=== PATIENT | male | born 1990 | race Caucasian/White ===

== ENCOUNTER 2018-10-05 10:42 | Emergency (ER) | payer MEDICAID, OTHER ==
--- NOTE | 2018-10-05 11:20 | ED Physician Documentation ---
History of Present Illness - Stated complaint Stated Complaint: RT/LT FOOT PX - Chief complaint Chief Complaint: Ext Problem - Additonal information Additional information: This is a 28-year-old male who presents with bilateral foot and ankle pain after a wakeboarding accident. Patient was riding his friend's wakeboard when he caught his front edge falling forward and his legs were pulled out of the boots with force. He had immediate pain in his bilateral ankles, and his left foot. He has been able to bear weight on the right foot, but he cannot bear weight on the left. He is using crutches to get around. This occurred yesterday and the pain has not improved significantly today so he came into the emergency department. He denies tingling, numbness, weakness.He has a history of a fracture of his right foot in the past. Review of Systems Constitutional: denies: Fever Cardiac: denies: Chest pain / pressure Respiratory: denies: Dyspnea GI: denies: Abdominal Pain Skin: reports: Other (+ for bruising) Musculoskeletal: reports: Joint pain, Joint swelling Neurologic: denies: Generalized weakness PD PAST MEDICAL HISTORY - Past Medical History Cardiovascular: None Respiratory: None Endocrine/Autoimmune: None GI: None : None Psych: None Derm: None - Past Surgical History Ortho: Carpal Tunnel surgery - Present Medications Home Medications: Ambulatory Orders Medication Instructions Recorded Confirmed Oxycodone HCl/Acetaminophen 1 - 2 each PO Q6H PRN #14 tablet 10/05/18 [Percocet 5-325 mg Tablet] Polyethylene Glycol 3350 [Miralax] 17 gm PO DAILY PRN #1 bottle 10/05/18 - Allergies Allergies/Adverse Reactions: Allergies Allergy/AdvReac Type Severity Reaction Status Date / Time No Known Drug Allergies Allergy Verified 10/05/18 10:51 - Social History Does the pt smoke?: No Smoking Status: Never smoker PD ED PE NORMAL - Vitals Vital signs reviewed: Yes - General General: Alert and oriented X 3, No acute distress - HEENT HEENT: PERRL - Cardiac Cardiac: RRR - Respiratory Respiratory: No respiratory distress - Abdomen Abdomen: Normal bowel sounds, Soft, Non tender, Non distended - Derm Derm: Warm and dry - Extremities Extremities: Other (There is bruising over the lateral inferior right ankle inferior to the right malleolus, with tenderness in this region. No tibial/fibular tenderness. The left dorsal midfoot is very tender to palpation, with extensive bruising and swelling. Again there is no fibular or tibial tenderness. The toes on both feet are atraumatic and non-tender. 2+ post tibial pulses bilaterally, SILT over both extrmetries, patient is able to wiggle all toes.) - Neuro Neuro: Alert and oriented X 3 - Psych Psych: Normal mood, Normal affect Results - Vitals Vitals: Vital Signs - 24 hr 10/05/18 10/05/18 10:49 15:02 Temperature 36.8 C 36.3 C L Heart Rate 106 H 66 Respiratory 20 16 Rate Blood Pressure 152/98 H 135/84 H O2 Saturation 94 97 Oxygen O2 Source Room air - Rads (name of study) XR ankle bila Radiology: Prelim report reviewed (Likely calcaneal process fracture on right.) CT left ankle/foot Radiology: Prelim report reviewed (Mildly comminuted left anterior process calca ivonne fracture) Procedures - Splint (location) Lower extremity left Splint applied by: Tech Type of splint: Short leg, Other (Short leg posterior slab with sugar tong (AO splint)) Other: Patient tolerated well, Neurovascular intact, Crutches provided PD MEDICAL DECISION MAKING - ED course Complexity details: considered differential (Fracture, dislocation, contusion, neurovascular injury, sprain, ligamentous injury) ED course: Patient presents with left greater than right ankle pain after a wakeboarding accident. On exam his feet are neurovascularly intact. tylenol and ibuprofen given for pain. XRs obtained, the right ankle does not have signs of acute osseous abnormality and based on the location of his tenderness and the fact that he can bear weight, this is likely an ankle sprain. The left foot had a possible calcaneal fracture, CT was performed confirming an anterior process fracture of the left calcaneus. There is some mild comminution but it is not frankly displaced. I spoke with Dr. Bender of orthopedics who reviewed the images and agreed with the plan of non-weight bearing in a short leg AO splint. He recommended follow up with a metabolic specialist. I provided patient with the contact information for several foot specialists and discussed that he should obtain the next possible appointment. If he is unable to get in in a timely manner, he may follow up with our orthopedists, however he would be best served seeing a metabolic specialist for this fracture. I also emphasized he should be non- weight bearing on the left foot, and that if he has continued non-improving pain on the right he may need repeat films of the right. Patient verbalized understanding. I reviewed return precuations, prescribed percocet for breakthrough pain not controlled by tylenol/ibuprofen, and miralax if he takes the percocet. Patient was provided new crutches that fit him properly and was discharged home Departure - Departure Disposition: , Self Care Clinical Impression: Calcaneal fracture Qualifiers: Encounter type: initial encounter Calcaneus location: anterior process Fracture type: closed Fracture alignment: nondisplaced Laterality: left Qualified Code(s): S92.025A - Nondisplaced fracture of anterior process of left calcaneus, initial encounter for closed fracture Condition: Good Instructions: ED Fx Foot Follow-Up: BRANDI RAMOS MD [Physician No Access] - Belgica Flanagan DPM [Physician No Access] - Prescriptions: Oxycodone HCl/Acetaminophen [Percocet 5-325 mg Tablet] 1 - 2 each PO Q6H PRN #14 tablet PRN Reason: pain Polyethylene Glycol 3350 [Miralax] 17 gm PO DAILY PRN #1 bottle PRN Reason: Constipation Comments: You were seen today for foot pain. You have a fracture of the calcaneus on your left foot. Do not bear weight on this. You need to follow-up with a metabolic specialist, please call Dr. Silvestre or [facility] for the next possible appointment ideally within 1 week. Use crutches.We do not see signs of a fracture on the right side, but if you have increasing or not improving pain you may need a repeat x-ray in 1 week. Forms: Activity restrictions Discharge Date/Time: 10/05/18 15:03
[2018-10-05] MEDS ORDERED: IBUPROFEN 600 MG TABLET PO STA (11:45)
[2018-10-05] MEDS ORDERED: ACETAMINOPHEN 325 MG TABLET PO STA (11:45)
--- NOTE | 2018-10-05 12:33 | XRAY Report ---
Reason: Ankle and foot pain after wakeboarding accident Procedure Date: 10/05/2018 Accession Number: [id number] / [id number] Procedure: XR - Ankle 3 View BILAT CPT Code: FULL RESULT: EXAMS: 1. Right Ankle Radiography 2. Left Ankle Radiography EXAM DATE: 10/05/2018 12:13 PM. CLINICAL HISTORY: Ankle and foot pain after wakeboarding accident. COMPARISON: FOOT 3 VIEW LT 10/05/2018 11:58 AM. TECHNIQUE: 3 views each ankle. FINDINGS: Right Ankle: Bones: Elongated anterior calcaneal process, question coalition. No fractures or bone lesions. Joints: Normal. No effusion. No subluxations. The ankle mortise is normally aligned. Soft Tissues: Normal. No soft tissue swelling. Left Ankle: Bones: Probable anterior calcaneal process fracture. Joints: Potential talocalcaneal coalition. Talar beaking. No dislocation. Soft Tissues: Normal. No soft tissue swelling. IMPRESSION: 1. Probable left anterior calcaneal process fracture. Recommend CT to further assess. 2. Potential left talocalcaneal coalition. 3. No right ankle fracture evident. 4. Elongated right anterior calcaneal process, question talocalcaneal coalition. RADIA
--- NOTE | 2018-10-05 12:35 | XRAY Report ---
Reason: Pain after wakebording accident Procedure Date: 10/05/2018 Accession Number: [id number] / [id number] Procedure: XR - Foot 3 View LT CPT Code: FULL RESULT: EXAM: LEFT FOOT RADIOGRAPHY EXAM DATE: 10/05/2018 12:13 PM. CLINICAL HISTORY: Pain after wakeboarding accident. COMPARISON: XR FOOT COMPLETE MIN 3 VIEWS 04/22/2007 11:33 AM ANKLE 3 VIEW BILAT 10/05/2018 11:53 AM. TECHNIQUE: 3 views. FINDINGS: Bones: Normal. No fractures or bone lesions. Joints: Normal. No subluxations. Soft Tissues: Normal. No soft tissue swelling. IMPRESSION: 1. No fracture evident. Separate ankle series same day raises concern for anterior calcaneal process fracture, with CT recommended to further assess. RADIA
--- NOTE | 2018-10-05 13:36 | CT Report ---
Reason: CT foot/ankle for possible calcaneal process fx Procedure Date: 10/05/2018 Accession Number: [id number] / [id number] Procedure: CT - LOWER EXTREMITY WO - LT CPT Code: FULL RESULT: EXAM: LEFT FOOT CT WITHOUT CONTRAST EXAM DATE: 10/05/2018 01:03 PM. CLINICAL HISTORY: CT foot/ankle for possible calcaneal process fracture. COMPARISON: FOOT 3 VIEW LT 10/05/2018 11:58 AM. TECHNIQUE: Thin-section axial images were acquired of the foot without contrast. Post-processing: Coronal and sagittal reformats. Other: None. In accordance with CT protocol optimization, one or more of the following dose reduction techniques were utilized for this exam: automated exposure control, adjustment of mA and/or KV based on patient size, or use of iterative reconstructive technique. FINDINGS: Bones: There is no acute fracture of the superior tip of the anterior process of the calcaneum. The anterior process of the calcaneum is hypertrophied, as is the posterior inferior margin of the navicula. There is a superior talar head beak. Subcortical cyst formation in the adjacent margins of the navicular and anterior process of the calcaneum. 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 Joints: The joint spaces are preserved. No calcified loose bodies. No large effusion. Musculature: Normal. No fatty atrophy. Other: No tendon entrapment. No soft tissue swelling. IMPRESSION: 1. Acute fracture of the superior beak of the anterior process of the calcaneum. 2. Fibrocartilaginous naviculocuneiform tarsal coalition. RADIA
[2018-10-05 15:04] VITALS: BP 135/84
--- NOTE | 2018-10-05 17:17 | CONSULTATION NOTE ---
History - Past Medical History Cardiovascular: reports: None Respiratory: reports: None Endocrine/Autoimmune: reports: None GI: reports: None : reports: None Psych: reports: None Derm: reports: None MRSA Hx?: No - Past Surgical History Ortho: reports: Carpal Tunnel surgery Meds/Allgy - Home Medications Home Medications: Ambulatory Orders Medication Instructions Recorded Confirmed Oxycodone HCl/Acetaminophen 1 - 2 each PO Q6H PRN #14 tablet 10/05/18 [Percocet 5-325 mg Tablet] Polyethylene Glycol 3350 [Miralax] 17 gm PO DAILY PRN #1 bottle 10/05/18 - Allergies Allergies/Adverse Reactions: Allergies Allergy/AdvReac Type Severity Reaction Status Date / Time No Known Drug Allergies Allergy Verified 10/05/18 10:51 Exam - Vital Signs Vital Signs: Vital Signs x48h Temp Pulse Resp BP Pulse Ox 10/05/18 15:02 36.3 C L 66 16 135/84 H 97 10/05/18 10:49 36.8 C 106 H 20 152/98 H 94 Conclusion/Plan - Plan Plan: No formal consult requested or performed. Phone call from Emergency Medicine MD. Asked about calcaneal fracture. Agreed with EM MD's plan for NWB and [place] splint. Advised that patient will have to see shredding specialist. Two names given from [facility] ( and a DPM). Asked to advise patient of this but that our Ortho office would be available to help facilitate continuity of care if needed.
== END 2018-10-05 15:03 | disposition home or self-care (01) ==
LOC: ED 10:42
DX: S92.025A Nondisplaced fracture of anterior process of left calcaneus, initial encounter for closed fracture (principal); S90.01XA Contusion of right ankle, initial encounter; V93.87XA Other injury due to other accident on board water-skis, initial encounter; Y93.17 Activity, water skiing and wake boarding
CPT/HCPCS: 29515; 73610; 73630; 73700; 99284; A9270

== ENCOUNTER 2020-04-04 08:00 | Outpatient (CLI) | payer OTHER, MEDICAID | END 2020-04-04 23:59 | disposition home or self-care (01) | LOC: LAB.R 08:00 | PROVIDERS: ATTEND Physician Assistant Medical | DX: Z20.822 Contact with and (suspected) exposure to COVID-19 (principal) ==

== ENCOUNTER 2022-04-28 09:30 | Outpatient (CLI) | payer OTHER, MEDICAID | END 2022-04-28 23:59 | disposition home or self-care (01) | LOC: LAB 09:30 | PROVIDERS: ATTEND Physician Assistant | DX: J02.9 Acute pharyngitis, unspecified (principal); J34.89 Other specified disorders of nose and nasal sinuses | CPT/HCPCS: 87070; 87077 ==